=== PATIENT | male | born 1945 | race African-American/Black ===

== ENCOUNTER 2025-06-27 10:36 | Emergency (ER) | payer MEDICARE, MEDICAID ==
[~2025-06-27] VITALS: Ht 152.4 cm; Wt 67.0 kg
[2025-06-27 10:50] VITALS: BP 171/79; TEMP 36.8; O2SAT 98
[2025-06-27 10:59] VITALS: PULSE 64; RESP 16; O2SAT 99
[2025-06-27] MEDS: KETOROLAC 15MG/ML VIAL IM ONE (14:18)
[2025-06-27] MEDS: LIDOCAINE 5% PATCH TOP STA (14:18)
[2025-06-27] MEDS ORDERED: IBUP-1455 MT (15:40)
[2025-06-27] MEDS ORDERED: LIDO700A30 TP (15:40)
== END 2025-06-27 16:20 | disposition home or self-care (01) ==
LOC: ER 11:07
DX: M54.41 Lumbago with sciatica, right side (principal); E11.9 Type 2 diabetes mellitus without complications; E78.00 Pure hypercholesterolemia, unspecified; Z79.899 Other long term (current) drug therapy
CPT/HCPCS: 99283; 72100; 96372; J1885